=== PATIENT | female | born 1985 | race African-American/Black ===

== ENCOUNTER 2025-09-05 21:57 | Emergency (ER) | payer MEDICAID ==
[~2025-09-05] VITALS: Ht 172.7 cm; Wt 77.0 kg
[2025-09-05 22:03] VITALS: TEMP 98.2
[2025-09-05] MEDS: ALBUTEROL (0.083%) 2.5MG/3ML NEB HHN SCH (22:27)
[2025-09-05 22:50] VITALS: PULSE 75; RESP 24; O2SAT 99
[2025-09-05 22:56] LABS: BASOPHILS % 0.7 % (0.0-2.0); EOSINOPHILS % 4.9 % (0.0-5.0); HEMATOCRIT. 37.1 % (36.0-48.0); HEMOGLOBIN. 12.6 g/dL (12.0-16.0); LYMPHOCYTES % 47.1 % (20.0-50.0); MEAN PLATELET VOLUME 7.4 fl (7.4-10.4); MONOCYTES % 5.3 % (2.0-8.0); NEUTROPHILS % 42.0 % (40.0-76.0); PLATELET 360 x1000/uL (130-400); RED BLOOD CELL COUNT 4.05 mill/uL (4.2-5.4); RED CELL DISTRIBUTION WIDTH 13.1 % (11.6-14.6)
[2025-09-05] MEDS: KETOROLAC 15MG/ML VIAL IV ONE (22:56)
[2025-09-05] MEDS: METHYLPREDNISOLONE SOD SUCC 125MG/2ML (ACT-O-VIAL) IV ONE (22:56)
[2025-09-05 23:23] LABS: CREATININE 0.8 mg/dL (0.6-1.0)
[2025-09-05 23:24] LABS: PROTEIN TOTAL 7.8 g/dL (6.0-8.3); TROPONIN I HIGH SENSITIVITY < 4 ng/L (3.0-34); UREA NITROGEN BLOOD 9 mg/dL (9-23)
[2025-09-05 23:25] LABS: ASPARTATE AMINOTRANSFERASE 15 IU/L (<34)
[2025-09-05 23:26] LABS: BILIRUBIN DIRECT 0.1 mg/dL (<=3.0); BILIRUBIN TOTAL 0.4 mg/dL (0.1-1.0)
[2025-09-06] MEDS ORDERED: P50 MT (00:09)
[2025-09-06] MEDS ORDERED: IPRA3AMP9 NEB (00:09)
[2025-09-06 01:07] VITALS: BP 128/78; PULSE 74; RESP 20; O2SAT 99
== END 2025-09-06 01:11 | disposition home or self-care (01) ==
LOC: ER 21:57 → CMPBEDREQ 09-07 10:34
DX: J45.901 Unspecified asthma with (acute) exacerbation (principal)
CPT/HCPCS: 80076; 80048; 83880; 83690; 85025; 84484; 36415; 71045; 94640; 93005; 96374; 96375; 99285; J1885; J2919; Z7610 ×2